=== PATIENT | male | born 1940 | race Caucasian/White ===

== ENCOUNTER → 2018-11-05 | Outpatient (CLI) | payer OTHER | END | disposition home or self-care (01) | LOC: RAD 08:46 | PROVIDERS: ATTEND Otolaryngology Facial Plastic Surgery | DX: K22.8 Other specified diseases of esophagus (principal) | CPT/HCPCS: 74220 ==

== ENCOUNTER 2020-07-08 06:31 | Day surgery (SDC) | payer OTHER ==
[~2020-07-08] VITALS: Ht 180.3 cm; Wt 84.4 kg
[~2020-07-08 06:31] MED LIST: ATOR20TA37 PO; CELLCEPT; CHOL10003 PO; DIGO250T3 PO; DILT30TA27 PO; EMPA25TA PO; INSU100I13 SQ-INSULIN; LEVO50TA5 PO; MESTINON; METF500T17 PO; METO25TA35 PO; MIDO5TAB9 PO; PANT40TA6 PO; PRED50TA PO; SIMV10TA18 PO
[2020-07-08] MEDS ORDERED: CHLORHEXIDINE 15 ML UDC MM ONE (07:00)
[2020-07-08] MEDS ORDERED: LACTATED RINGERS 1,000 ML IV SCH (07:00)
[2020-07-08 07:28] VITALS: BP 117/78
[2020-07-08] MEDS ORDERED: PLEASE ENTER HEIGHT AND WEIGHT MC SCH (07:30)
[2020-07-08] MEDS ORDERED: POTA20TA89 PO (07:42)
[2020-07-08] MEDS ORDERED: OMEP-110 PO (07:42)
[2020-07-08] MEDS ORDERED: IRON1TAB60 PO (07:42)
[2020-07-08] MEDS ORDERED: METF500T17 PO (07:42)
[2020-07-08] MEDS ORDERED: FURO-92 PO (07:42)
[2020-07-08] MEDS ORDERED: PYRI60TA PO (07:42)
[2020-07-08] MEDS ORDERED: SPIR25TA5 PO (07:42)
[2020-07-08] MEDS ORDERED: SIMV10TA18 PO (07:42)
[2020-07-08] MEDS ORDERED: PROPOFOL 10 MG/ML, 50ML ONE (08:40)
[2020-07-08] MEDS ORDERED: PROPOFOL 10 MG/ML, 20ML ONE (08:40)
== END 2020-07-08 11:40 | disposition home or self-care (01) ==
LOC: OUT 06:31
PROVIDERS: ATTEND Internal Medicine Gastroenterology
DX: Z12.11 Encounter for screening for malignant neoplasm of colon (principal); Z20.828 Contact with and (suspected) exposure to other viral communicable diseases; D12.2 Benign neoplasm of ascending colon; D12.0 Benign neoplasm of cecum; I10 Essential (primary) hypertension; E11.9 Type 2 diabetes mellitus without complications; I48.91 Unspecified atrial fibrillation; G70.00 Myasthenia gravis without (acute) exacerbation; E03.9 Hypothyroidism, unspecified; Z86.010 Personal history of colon polyps
CPT/HCPCS: 36415; 45385; 82962; 87635; 88305; 93005; J2704; J7120